=== PATIENT | female | born 1975 | race African-American/Black ===

== ENCOUNTER 2017-09-08 15:46 | Inpatient (IN) | payer BC ==
[2017-09-08] MEDS ORDERED: Acetaminophen 500 MG TAB ONE (16:38)
[2017-09-08 16:42] LABS: Hematocrit 21.6 % (36.0-47.0); Red Blood Cell (RBC) Count 3.53 mill/uL (4.20-5.40); White Blood Cell (WBC) Count 5.9 thou/uL (4.8-10.8)
[2017-09-08 16:54] LABS: Lactic Acid - Sepsis 2.5 mmol/L (0.5-2.2)
[2017-09-08 16:58] LABS: ALT (SGPT) 10 U/L (8-55); AST (SGOT) 26 U/L (5-34); Alkaline Phosphatase 44 U/L (40-150); Anion Gap 14 mmol/L (10-20); BUN (Urea Nitrogen) 8 mg/dL (7.0-18.7); Bilirubin, Total 0.5 mg/dL (0.2-1.2); CK (CPK) 151 U/L (29-168); Calc. Creatinine Clearance 0 mL/min (70-130); Calcium 9.9 mg/dL (7.8-10.44); Carbon Dioxide 20 mmol/L (22-29); Chloride 103 mmol/L (98-107); Estimated GFR-MDRD 82; Globulin 4.1 g/dL (2.4-3.5); Protein, Total 8.2 g/dL (6.0-8.3)
[2017-09-08 17:01] LABS: Troponin I Less than 0.010 ng/mL (< 0.028)
--- NOTE | 2017-09-08 17:02 | RAD ---
PORTABLE CHEST ONE VIEW 09/08/17 at 4:31 p.m. HISTORY: Dyspnea. FINDINGS: Comparison made to exam of 01/21/10. The heart size is normal. No confluent areas of consolidation, pneumothorax, james pulmonary edema or pleural effusions are seen. IMPRESSION: No acute process. POS: [facility]
[2017-09-08 17:05] LABS: Bilirubin Negative (Negative); Blood, Urine Trace (Negative); Glucose, Urine (Dipstick) Negative (Negative); Ketone, Urine Negative (Negative); Nitrite Negative (Negative); Protein, Urine (Dipstick) 30 mg/dL (Neg-Trace)
[2017-09-08 17:07] LABS: Bacteria/HPF 1+ HPF (None Seen); Hyaline Casts/LPF 0-3 HYALINE CAST LPF (0-3 Hyaline)
[2017-09-08 17:07] LABS: #Lymphocytes 0.8 thou/uL (1.20-3.40); #Monocytes 0.7 thou/uL (0.11-0.59); #Neutrophils 4.4 thou/uL (1.40-6.50); %Eosinophils 0.3 % (0.0-10.0); %Lymphocytes 14.3 % (21.0-51.0); %Monocytes 11.5 % (0.0-10.0); Anisocytosis SLIGHT = 6-15 cells (100X) (0-5/hpf); Hypochromia MODERATE=16-30 cells (100X) (0-5/hpf); Macrocytosis MODERATE=16-30 cells (100X) (0-5/hpf); Ovalocytes SLIGHT = 2-5 cells (100X) (0-1/hpf); Polychromasia SLIGHT = 2-3 cells (100X) (0-2/hpf)
[2017-09-08] MEDS ORDERED: Sodium Chloride 0.9% 1,000 ML IV SCH (22:15)
[2017-09-08 22:35] VITALS: BMI 42.0
[2017-09-09 00:41] LABS: Hematocrit 22.3 % (36.0-47.0)
[2017-09-09] MEDS ORDERED: Acetaminophen 325 MG TAB PO SCH (02:00)
[2017-09-09] MEDS ORDERED: Bisacodyl 5 MG TAB PO PRN (02:01)
[2017-09-09] MEDS ORDERED: Ondansetron HCl/PF 4 MG/2 ML Vial IVP PRN (02:01)
--- NOTE | 2017-09-09 03:09 | HP ---
PRIMARY CARE PROVIDER: None. CHIEF COMPLAINT: Shortness of breath. HISTORY OF PRESENT ILLNESS: Ms. Puga is a pleasant 41-year-old lady who was seen at [facility] on 09/09/2017. She reports that she has been having shortness of breath, fever, body aches, chills, cough, and conge stion for the last 3 days. It was worse yesterday. She also reports that she has a history of heavy menstrual bleeding. She was supposed to have an ablation 2 years ago, but did not go to her appoint ment. She denies any lightheadedness. She denies any chest pain. She denies any abdominal pain. She garett es any dizziness. She came to the emergency room because of ongoing shortness of breath. She also reports that she fel t warm. REVIEW OF SYSTEMS: The following complete review of systems was negative, unless otherwise mentioned in the HPI or below: Constitutional: Weight loss or gain, sense of well-being, ability to conduct usual activities, exerc ise tolerance. Skin/Breast: Rash, itching, changes in hair growth or loss, nail changes, breast lumps, tenderness, swelling, nipple discharge. Eyes: Vision, double vision, tearing, blind spots, pain. ENT/Mouth: Headaches (location, time of onset, duration, precipitating factors), vertigo, lightheade dness, injury. Vision, double vision, tearing, blind spots, pain, nose bleeding, colds, obstruction, discharge, dental difficulties, gingival bleeding, dentures, neck stiffness, pain, tenderness, masses in thyroid or other areas. Cardiovascular: Precordial pain, substernal distress, palpitations, syncope, dyspnea on exertion, or thopnea, nocturnal paroxysmal dyspnea, edema, cyanosis, hypertension, heart murmurs, varicosities, ph lebitis, claudication. Respiratory: Pain, shortness of breath, wheezing, stridor, cough, hemoptysis, fever or night sweats. Gastrointestinal: Poor appetite, dysphagia, indigestion, abdominal pain, heartburn, eructation, naus ea, vomiting, hematemesis, jaundice, constipation, or diarrhea, abnormal stools (keeley-colored, tarry, bloody, greasy, foul smelling), flatulence, hemorrhoids, recent changes in bowel habits. Genitourinary: Urgency, frequency, dysuria, nocturia, hematuria, polyuria, oliguria, unusual (or acosta nge in) color of urine, stones, hesitancy, change in size of stream, dribbling, acute retention or in continence, libido, potency. Musculoskeletal: Pain, swelling, redness or heat of muscles or joints, limitation, of motion, muscul ar weakness, atrophy, cramps. Neurologic/Psychiatric: Convulsions, paralyses, tremor, incoordination, paresthesias, difficulties w ith memory of speech, sensory or motor disturbances, or muscular coordination (ataxia, tremor), emoti onal problems, anxiety, depression, previous psychiatric care, unusual perceptions, hallucinations. Allergy/Immunologic: Skin rash, anemia, bleeding tendency, polydipsia, polyuria, intolerance to heat or cold. PAST MEDICAL HISTORY: Menorrhagia. PAST SURGICAL HISTORY: section. SOCIAL HISTORY: The patient denies tobacco use, alcohol use, or recreational drug use. FAMILY HISTORY: No family history of premature coronary artery disease. ALLERGIES: No known drug allergies. CURRENT MEDICATIONS: None. PHYSICAL EXAMINATION: GENERAL: On examination, Ms. Puga is awake and alert, not in acute distress. She is morbidly obe se with a BMI of 42.1 kilogram per square meter. VITAL SIGNS: Blood pressure is 110/49, pulse is 96, she was breathing at rate of 20 and saturating w ell on room air. She has a temperature of 100.2 degrees Fahrenheit. EYES: No scleral icterus, conjunctival pallor present. ENT: Dry mucosal membranes, no oropharyngeal erythema or exudates. NECK: Supple, nontender, normal range of movement, trachea is midline. RESPIRATORY: Accessory muscles of breathing are not active. Chest wall movements are symmetric bila terally. She has occasional expiratory wheeze. CARDIOVASCULAR: S1 and S2 are heard, regular. Peripheral pulses palpable. No carotid bruit, no per icardial rub. ABDOMEN: Soft, nontender, bowel sounds heard, no hepatomegaly, no splenomegaly. NEUROLOGIC: Cranial nerves II-XII are intact, deep tendon reflexes 2+. MUSCULOSKELETAL: Power is 5/5 in all 4 extremities. Normal range of movement at all major extremity joints. SKIN: No rashes or subcutaneous nodules. LYMPHATIC: No cervical lymphadenopathy. PSYCHIATRIC: Normal mood, normal affect, patient is oriented to person, place, and time. LABORATORY DATA: Ms. Puga' labs and investigations were reviewed. I reviewed her electrocardiogr am, which shows sinus tachycardia, no ST changes to suggest an acute coronary syndrome. I also revie wed her chest x-ray, which does not show any pulmonary infiltrates. She had influenza screen, which is positive for influenza A antigen. She also had Streptococcus screen, which was negative. Laborat ory investigation showed normal white count, hemoglobin of 5.8, low MCV of 61.3, normal platelet coun t, decreased sodium of 133, normal potassium, normal creatinine, unremarkable liver profile and iliana l troponin I. Lactic acid is currently 0.7, down from 2.5. Urinalysis is positive for protein, bloo d, small amount of leukocyte esterase. ASSESSMENT AND PLAN: Ms. Puga is a pleasant 41-year-old lady who was seen at [facility]. Her problem list includes: 1. Sepsis: Most likely secondary to influenza infection. 2. Influenza infection. She will be admitted to the hospital and treated with Tamiflu as well as in travenous fluids. 3. Symptomatic anemia: Likely due to menorrhagia. The patient is receiving packed RBC transfusions . We will recheck hemoglobin. She will need to follow up with [facility] as outpatient. 4. Hyponatremia: Mild, we will recheck. 5. Dehydration: The patient is currently dehydrated. We will provide intravenous hydration. Many thanks for allowing me to participate in your patient's care. Please feel free to contact me wi th any questions or concerns. LEVEL OF RISK: High. LEVEL OF COMPLEXITY: High.
[2017-09-09] MEDS: Sodium Chloride 0.9% 1,000 ML IV SCH ×2 (04:41→16:35)
[2017-09-09 06:27] LABS: Hematocrit 24.4 % (36.0-47.0); Mean Platelet Volume 5.8 fL (7.4-10.4); Red Blood Cell (RBC) Count 3.72 mill/uL (4.20-5.40); White Blood Cell (WBC) Count 4.7 thou/uL (4.8-10.8)
[2017-09-09 06:35] LABS: Anion Gap 10 mmol/L (10-20); BUN (Urea Nitrogen) 8 mg/dL (7.0-18.7); Calc. Creatinine Clearance 173 mL/min (70-130); Calcium 8.6 mg/dL (7.8-10.44); Carbon Dioxide 21 mmol/L (22-29); Chloride 106 mmol/L (98-107); Estimated GFR-MDRD Greater than 90
[2017-09-09 07:38] LABS: #Lymphocytes 0.8 thou/uL (1.20-3.40); #Monocytes 0.7 thou/uL (0.11-0.59); #Neutrophils 3.2 thou/uL (1.40-6.50); %Basophils 0.6 % (0.0-1.0); %Eosinophils 0.1 % (0.0-10.0); %Lymphocytes 16.7 % (21.0-51.0); %Monocytes 14.2 % (0.0-10.0); Hypochromia MODERATE=16-30 cells (100X) (0-5/hpf); Microcytosis MARKED = >30 cells (100X) (0-5/hpf); Polychromasia SLIGHT = 2-3 cells (100X) (0-2/hpf)
[2017-09-09] MEDS: Oseltamivir 75 MG CAP PO SCH ×2 (08:44→21:15)
[2017-09-09] MEDS: Acetaminophen 325 MG TAB PO PRN (11:04)
[2017-09-09] MEDS ORDERED: Potassium Chloride 20 MEQ TAB PO SCH (12:00)
--- NOTE | 2017-09-09 13:53 | PDOC.EVN ---
Event Note - Event Note Event Note: pt seen and eval agree with current plan monitor labs
[2017-09-09] MEDS ORDERED: HYDROcodone/Acetaminophen 5/325 mg Tablet PO PRN (14:00)
[2017-09-09] MEDS: Azithromycin 250 MG TAB PO SCH (14:48)
[2017-09-10] MEDS ORDERED: Benzonatate 100 MG CAP PO PRN (04:24)
[2017-09-10 04:55] LABS: Anion Gap 12 mmol/L (10-20); BUN (Urea Nitrogen) 7 mg/dL (7.0-18.7); Calc. Creatinine Clearance 188 mL/min (70-130); Calcium 8.3 mg/dL (7.8-10.44); Carbon Dioxide 21 mmol/L (22-29); Chloride 106 mmol/L (98-107); Estimated GFR-MDRD Greater than 90
[2017-09-10] MEDS: Acetaminophen 325 MG TAB PO PRN (05:22)
[2017-09-10 06:03] LABS: #Lymphocytes 1.4 thou/uL (1.20-3.40); #Monocytes 0.5 thou/uL (0.11-0.59); %Basophils 0.2 % (0.0-1.0); %Eosinophils 0.3 % (0.0-10.0); %Lymphocytes 28.1 % (21.0-51.0); %Monocytes 9.5 % (0.0-10.0); Hematocrit 27.7 % (36.0-47.0); Hypochromia MODERATE=16-30 cells (100X) (0-5/hpf); Mean Platelet Volume 5.8 fL (7.4-10.4); Microcytosis SLIGHT = 6-15 cells (100X) (0-5/hpf); White Blood Cell (WBC) Count 4.9 thou/uL (4.8-10.8)
[2017-09-10] MEDS: Loratadine 10 MG TAB PO SCH (09:24)
[2017-09-10] MEDS: Oseltamivir 75 MG CAP PO SCH ×2 (09:24→20:49)
[2017-09-10] MEDS: Sodium Chloride 0.9% 1,000 ML IV SCH (09:29)
[2017-09-10] MEDS ORDERED: cefTRIAXone\\ROCEPHIN 1 GM in Sodium Chloride 0.9% 100 ML IVPB SCH (11:45)
[2017-09-10] MEDS ORDERED: cefTRIAXone\\ROCEPHIN 1 GM, Syringe 0.4 ML in Sterile Water 9.6 ML SLOW IVP SCH (12:00)
[2017-09-10 12:26] LABS: Anion Gap 11 mmol/L (10-20); BUN (Urea Nitrogen) 6 mg/dL (7.0-18.7); Calc. Creatinine Clearance 183 mL/min (70-130); Calcium 8.5 mg/dL (7.8-10.44); Carbon Dioxide 24 mmol/L (22-29); Chloride 105 mmol/L (98-107); Estimated GFR-MDRD Greater than 90
--- NOTE | 2017-09-10 12:51 | PDOC.PN ---
- Subjective Encounter Start Date: 09/10/17 Encounter Start Time: 12:49 Patient seen and examined. No new complaints. No overnight events - Objective MAR Reviewed: Yes Vital Signs & Weight: Vital Signs (12 hours) Temp Pulse Resp BP Pulse Ox 09/10/17 12:00 99.0 F 69 20 121/76 74 L 09/10/17 09:20 98.8 F 80 20 09/10/17 08:00 98.8 F 80 20 112/59 L 95 09/10/17 04:30 100.0 F H 83 14 102/56 L 93 L 09/10/17 01:54 96 I&O: 09/09/17 09/10/17 09/11/17 06:59 06:59 06:59 Intake Total 188 945 0244 Balance 545 532 5152 Result Diagrams: 09/10/17 03:51 09/10/17 11:51 Phys Exam - Physical Examination Constitutional: NAD HEENT: PERRLA Neck: no JVD Respiratory: no rales Cardiovascular: no significant murmur Gastrointestinal: non-tender Musculoskeletal: pulses present Neurological: moves all 4 limbs Psychiatric: A&O x 3 Dx/Plan (1) Influenza A Code(s): J10.1 - FLU DUE TO OTH IDENT INFLUENZA VIRUS W OTH RESP MANIFEST Status: Acute (2) UTI (urinary tract infection) Status: Acute (3) SIRS (systemic inflammatory response syndrome) Code(s): R65.10 - SIRS OF NON-INFECTIOUS ORIGIN W/O ACUTE ORGAN DYSFUNCTION Status: Acute (4) Dehydration Code(s): E86.0 - DEHYDRATION Status: Acute (5) Symptomatic anemia Code(s): D64.9 - ANEMIA, UNSPECIFIED Status: Acute - Plan * repeat ur cul * cont tamiflu * cont abx * hydrate
[2017-09-10] MEDS: Azithromycin 250 MG TAB PO SCH (13:21)
[2017-09-10] MEDS ORDERED: Azithromycin 200 MG/5 ML Oral Suspension PO SCH (14:00)
[2017-09-11 05:46] LABS: Anion Gap 9 mmol/L (10-20); BUN (Urea Nitrogen) 5 mg/dL (7.0-18.7); Calc. Creatinine Clearance 190 mL/min (70-130); Calcium 8.6 mg/dL (7.8-10.44); Carbon Dioxide 22 mmol/L (22-29); Chloride 106 mmol/L (98-107); Estimated GFR-MDRD Greater than 90
[2017-09-11 06:20] LABS: #Lymphocytes 1.4 thou/uL (1.20-3.40); #Monocytes 0.4 thou/uL (0.11-0.59); %Basophils 0.2 % (0.0-1.0); %Eosinophils 0.2 % (0.0-10.0); %Lymphocytes 23.3 % (21.0-51.0); %Monocytes 7.1 % (0.0-10.0); Hematocrit 28.4 % (36.0-47.0); Mean Platelet Volume 5.5 fL (7.4-10.4); Red Blood Cell (RBC) Count 4.18 mill/uL (4.20-5.40); White Blood Cell (WBC) Count 5.8 thou/uL (4.8-10.8)
[2017-09-11 06:21] LABS: Hypochromia SLIGHT = 6-15 cells (100X) (0-5/hpf); Microcytosis SLIGHT = 6-15 cells (100X) (0-5/hpf)
[2017-09-11] MEDS: Loratadine 10 MG TAB PO SCH (08:40)
[2017-09-11] MEDS: Oseltamivir 75 MG CAP PO SCH (08:40)
[2017-09-11] MEDS ORDERED: Potassium Chloride 20 MEQ TAB PO SCH (10:30)
[2017-09-11] MEDS: Sodium Chloride 0.9% 1,000 ML IV SCH (10:42)
--- NOTE | 2017-09-11 11:23 | PDOC.PN ---
- Subjective Encounter Start Date: 09/11/17 Encounter Start Time: 11:22 Patient seen and examined. No new complaints. No overnight events - Objective MAR Reviewed: Yes Vital Signs & Weight: Vital Signs (12 hours) Temp Pulse Resp BP Pulse Ox 09/11/17 09:24 99.0 F 76 16 100 09/11/17 08:36 99.0 F 76 16 119/63 100 Weight Weight 254 lb 11.2 oz I&O: 09/10/17 09/11/17 09/12/17 06:59 06:59 06:59 Intake Total 450 3670 Balance 450 3670 Result Diagrams: 09/11/17 04:37 09/11/17 04:37 Phys Exam - Physical Examination Constitutional: NAD HEENT: PERRLA Neck: no JVD Respiratory: no wheezing Cardiovascular: no significant murmur Gastrointestinal: non-tender Musculoskeletal: pulses present Neurological: moves all 4 limbs Psychiatric: A&O x 3 Dx/Plan (1) Influenza A Code(s): J10.1 - FLU DUE TO OTH IDENT INFLUENZA VIRUS W OTH RESP MANIFEST Status: Acute (2) UTI (urinary tract infection) Status: Resolved (3) SIRS (systemic inflammatory response syndrome) Code(s): R65.10 - SIRS OF NON-INFECTIOUS ORIGIN W/O ACUTE ORGAN DYSFUNCTION Status: Acute (4) Dehydration Code(s): E86.0 - DEHYDRATION Status: Acute (5) Symptomatic anemia Code(s): D64.9 - ANEMIA, UNSPECIFIED Status: Acute - Plan * d/c home * f/u with pcp and obgyn
[2017-09-11 11:38] VITALS: BP 137/69; TEMP 98.4
--- NOTE | 2017-09-11 22:09 | DIS ---
DATE OF ADMISSION: 09/08/2017 DATE OF DISCHARGE: 09/11/2017 DISCHARGE DIAGNOSES: 1. Influenza type A. 2. Acute bronchitis. 3. Dehydration secondary to influenza. 4. Menorrhagia giving rise to symptomatic anemia. 5. Acute bronchitis. DISCHARGE MEDICATIONS: Include Levaquin 750 p.o. daily for 4 days, Tamiflu 75 p.o. b.i.d. for 3 more days, and Tessalon Perles 100 mg p.o. q.6 hours p.r.n. for cough. BRIEF HOSPITAL COURSE: This is a 41-year-old pleasant lady came into the hospital with shortness of breath. She was diagnosed to have influenza A. She was put on Tamiflu and she had some bronchitis, so she was put on Levaquin. Blood cultures and urine cultures were negative. The patient had sympto matic anemia when she came in because of menorrhagia. She was transfused 2 units of blood and hemogl obin stabilized. Right now, the shortness of breath has resolved. She is doing much better. She is medically stable to be discharged with outpatient follow up with PCP and the METER SETTER. She is asked t o come back to the emergency room in case symptoms recur. Total time for this discharge took 35 minutes.
== END 2017-09-11 12:15 | disposition home or self-care (01) | DRG 872 ==
LOC: ERS 15:46 → 2SE 21:54
PROVIDERS: ADMIT Internal Medicine Infectious Disease; ATTEND Internal Medicine Infectious Disease
PROC: 30233N1 Transfusion of Nonautologous Red Blood Cells into Peripheral Vein, Percutaneous Approach (ICD-10-PCS; principal; 2017-09-08)
DX: A41.89 Other specified sepsis (principal); E87.1 Hypo-osmolality and hyponatremia; N39.0 Urinary tract infection, site not specified; Z68.41 Body mass index [BMI] 40.0-44.9, adult; D64.9 Anemia, unspecified; J10.1 Influenza due to other identified influenza virus with other respiratory manifestations; N92.0 Excessive and frequent menstruation with regular cycle; E86.0 Dehydration; J20.8 Acute bronchitis due to other specified organisms; Z87.01 Personal history of pneumonia (recurrent); E66.01 Morbid (severe) obesity due to excess calories
CPT/HCPCS: 36415; 36430; 71010; 80048; 80053; 81003; 81015; 82274; 82553; 83605; 84484; 84703; 85014; 85018; 85025; 85060; 86850; 86900; 86901; 86921; 87040; 87081; 87086; 87149; 87430; 93005; 94640; 96360; 96361; A4216; J0696; J7620; P9016

== ENCOUNTER 2020-07-28 14:23 | Emergency (ER) | payer BC ==
[2020-07-28] MEDS ORDERED: Dexamethasone 10 MG/ML VIAL ONE (15:41)
[2020-07-28] MEDS ORDERED: Ibuprofen 800 MG TAB ONE (15:41)
--- NOTE | 2020-07-28 15:44 | RAD ---
Exam: Chest one view HISTORY:Chills and fevers. Body ache. Comparison: 09/08/2017 FINDINGS: Cardiac silhouette: Normal Aorta: Unremarkable Pulmonary vessels: Normal Costophrenic angles: Clear LUNGS: No masses or consolidation. Pneumothorax: None Osseous abnormalities: None IMPRESSION: No acute cardiopulmonary process.
[2020-07-29 15:40] LABS: SARS-CoV-2 MS2 Positive; SARS-CoV-2 N Gene Negative; SARS-CoV-2 S Gene Negative; SARS-CoV-2 by NAA Not Detected (NotDetected); SARS-CoV-2 orf1ab Negative
== END 2020-07-28 17:14 | disposition home or self-care (01) ==
LOC: ERS 14:23
DX: J02.9 Acute pharyngitis, unspecified (principal); Z20.828 Contact with and (suspected) exposure to other viral communicable diseases
CPT/HCPCS: 71045; 87081; 87430; 87635; 87804; 99283; J1100; U0003

== ENCOUNTER 2020-09-05 17:14 | Outpatient (CLI) | payer BC ==
[2020-09-06 02:10] LABS: SARS-CoV-2 MS2 Positive; SARS-CoV-2 N Gene Negative; SARS-CoV-2 S Gene Negative; SARS-CoV-2 by NAA Not Detected (NotDetected); SARS-CoV-2 orf1ab Negative
== END 2020-09-05 17:15 | disposition home or self-care (01) ==
LOC: LABBT 17:14
PROVIDERS: ATTEND Obstetrics & Gynecology
DX: Z20.828 Contact with and (suspected) exposure to other viral communicable diseases (principal)
CPT/HCPCS: 87635; U0003

== ENCOUNTER 2020-09-10 09:24 | Inpatient (IN) | payer BC ==
--- NOTE | 2020-09-10 08:54 | HP ---
REASON FOR ADMISSION: Total laparoscopic hysterectomy, bilateral salpingectomy secondary to menorrhagia and fibroids. HISTORY OF PRESENT ILLNESS: Ms. Puga is a 44-year-old 6, para 6, AB 0, x1, x5, who presented to me several months ago after a 5-year absence from my practice. We had discussed back in 2015 as well as recently her menorrhagia and severe dysmenorrhea and she desires definitive surgical management. 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 Negative Pap. Negative mammo. The patient has a history of overactive bladder. PAST SURGICAL HISTORY: . ALLERGIES: DENIES. MEDICATIONS: VESIcare. SOCIAL HISTORY: Denies tobacco, alcohol, or IV drug abuse. FAMILY HISTORY: Noncontributory. REVIEW OF SYSTEMS: Noncontributory. PHYSICAL EXAMINATION: VITAL SIGNS: 5 feet and 5 inches, 272, BMI 45. Blood pressure 126/70, pulse 85, and respirations 18. HEENT: Within normal limits. LUNGS: Clear to auscultation bilaterally. HEART: Regular rate and rhythm. BREASTS: No masses bilaterally. ABDOMEN: Soft, nontender. No rebound or guarding. PELVIS: Vulva without lesions. Vagina without discharge. Cervix, parous. Uterus anteverted, boggy, approximately 8 to 10 week size and tender. No adnexal masses noted. EXTREMITIES: No clubbing, cyanosis, or edema. DIAGNOSTIC STUDIES: Ultrasound was performed in the office revealed a uterus that measured 11 x 6 x 6 cm, 230 mL volume, 12 mm endometrial thickness. Normal-appearing right and left ovary with a simple right ovarian cyst. No free fluid. Of note, the uterus was consistent with adenomyosis. IMPRESSION: Menorrhagia. Globally enlarged uterus consistent with adenomyosis and dysmenorrhea, desires definitive surgical management. PROCEDURE: Total laparoscopic hysterectomy, bilateral salpingectomy with da Chelita robot. The patient understands risks and benefits of procedure. We will administer appropriate antibiotic and DVT prophylaxis. Job ID: [id number]
[2020-09-10] MEDS ORDERED: CeleCOXIB 100 MG CAP ONE (09:41)
[2020-09-10] MEDS ORDERED: Gabapentin 300 MG CAP ONE (09:41)
[2020-09-10] MEDS ORDERED: Famotidine/PF 20 mg/2ml Vial ONE (09:42)
[2020-09-10 10:04] LABS: #Basophils 0.1 thou/uL (0.0-0.2); #Eosinphils 0.1 thou/uL (0.0-0.7); #Lymphocytes 1.6 thou/uL (1.20-3.40); #Monocytes 0.4 thou/uL (0.11-0.59); #Neutrophils 4.2 thou/uL (1.40-6.50); %Basophils 0.8 % (0.0-1.0); %Eosinophils 1.9 % (0.0-10.0); %Lymphocytes 25.3 % (21.0-51.0); %Monocytes 6.7 % (0.0-10.0); %Neutrophils 65.4 % (42.0-75.0); Hemoglobin 6.9 g/dL (12.0-16.0); Mean Corpuscular HGB CONC 27.7 g/dL (32.0-36.0); Mean Corpuscular Hemoglobin 17.1 pg (27.0-31.0); Mean Corpuscular Volume 61.8 fL (78.0-98.0); Mean Platelet Volume 6.6 fL (7.4-10.4); Platelet Count 354 thou/uL (130-400); Red Blood Cell (RBC) Count 4.04 mill/uL (4.20-5.40); White Blood Cell (WBC) Count 6.5 thou/uL (4.8-10.8)
[2020-09-10 10:13] LABS: BHCG - Serum Negative (NEGATIVE); Pregs Control Background? CLEAR/WHITE (CLR/WHITE); Pregs Control Bar Appear? YES (CONTROL BAR)
[2020-09-10] MEDS ORDERED: Lidocaine 1% w/Epinephrine 1:100K 20 ML VIAL ONE (10:27)
[2020-09-10] MEDS ORDERED: Methylene Blue 50 MG/10 ML AMPUL ONE (10:27)
[2020-09-10] MEDS ORDERED: Bupivacaine PF 0.5% 30 ML VIAL ONE (10:27)
[2020-09-10] MEDS ORDERED: Fentanyl 100 MCG/2 ML VIAL ONE ×2 (10:41→14:41)
[2020-09-10] MEDS ORDERED: SUGAMMADEX SODIUM 200 MG/2 ML VIAL ONE (10:42)
[2020-09-10 10:58] LABS: Hypochromia MODERATE=16-30 cells (100X) (0-5/hpf); MDiff Complete? YES; Microcytosis MARKED = >30 cells (100X) (0-5/hpf); Ovalocytes MODERATE= 6-15 cells (100X) (0-1/hpf); Platelet Morphology Comment Appears Adequate; Polychromasia SLIGHT = 2-3 cells (100X) (0-2/hpf); Reflex for Review?? NO; Tear Drops SLIGHT = 2-5 cells (100X) (0-1/hpf)
[2020-09-10] MEDS ORDERED: Midazolam HCl 2 mg/2 ml Vial ONE (11:02)
[2020-09-10] MEDS ORDERED: Promethazine HCl 25 MG/ML VIAL IM PRN ×2 (13:32→15:38)
[2020-09-10] MEDS ORDERED: Promethazine HCl 25 MG/ML VIAL SLOW IVP PRN (13:32)
[2020-09-10] MEDS ORDERED: Meperidine HCl/PF 25 MG/ML VIAL SLOW IVP PRN (13:32)
[2020-09-10] MEDS ORDERED: PACU-Morphine 4MG/ML VIAL SLOW IVP PRN (13:32)
--- NOTE | 2020-09-10 14:39 | OP ---
DATE OF PROCEDURE: 09/10/2020 PREOPERATIVE DIAGNOSES: Adenomyosis, menorrhagia, severe iron deficiency anemia secondary. POSTOPERATIVE DIAGNOSES: Adenomyosis, menorrhagia, severe iron deficiency anemia secondary, dense cervical adhesions to the lower uterine segment and cervix. PROCEDURES: Total laparoscopic hysterectomy, bilateral salpingo-oophorectomy, incidental cystotomy and hysterectomy with repair with da Chelita. SPECIMENS REMOVED: Uterus and bilateral tubes. ESTIMATED BLOOD LOSS: 150 cc. OPERATIVE FINDINGS: 1. Enlarged uterus consistent with adenomyosis. 2. Right hydrosalpinx. 3. Dense adhesions of the cervix folded back over the bladder at the level of the cervix and lower uterine segment. 4. Incidental cystotomy recognized at the time of cystotomy repaired in 2-layer closure technique. 5. Clear urine. COUNTS: Correct at the end of the procedure. DISPOSITION: To recovery room in good condition. DESCRIPTION OF PROCEDURE: After obtaining appropriate informed consent, the patient was taken to the operating room, where general endotracheal anesthesia was achieved without difficulty. She was prepped and draped in dorsal lithotomy position in Lincoln stirrups. Sliding speculum was placed in vagina. Cervix was identified and grasped with single-toothed tenaculum, sounded to 8 to 9 cm and a KARIN manipulator, 4 cm vaginal warehouse order puller, 8 cm obturator was placed without difficulty. Chaparro catheter was placed and attached to a 60 cc syringe. Bladder drained. Attention was turned to the abdominal portion of the procedure. A 5 cc of Marcaine injected 2 cm above the umbilicus and a Veress needle placed in the abdominal cavity. Insufflation was carried out with carbon dioxide max pressure of 15. A 12 mm non-cutting trocar was placed at this level and confirmation entry into the peritoneal cavity without trauma to the underlying viscera was noted. No significant adhesions were noted of the omentum to the anterior abdominal wall. The patient had a previous vertical midline incision for delivery. The patient was placed in steep Trendelenburg and right and left lateral da Chelita ports were placed lateral to the epigastric vessels as well as an entry level marketing assistant port in the right upper quadrant. Da Chelita was docked with monopolar scissors in the right hand and bipolar fenestrated forceps in the left. Findings as noted in the operative findings were noted. The mesosalpinx on the patient's left was coagulated, transected, and the fallopian tube removed. The utero-ovarian and the broad and the round were then coagulated and transected on that side. This was carried down to the level of the internal cervical os. Large bulky aspect of the patient's uterus as well as her obesity and scar tissue at the level of the bladder from her previous made visualization somewhat difficult, but this was taken down in the usual manner. The bladder was backfilled several times and was appreciated and identified. However, in taking the bladder down off the cervix and lower uterine segment, it was noted that was apparently double folded on at this level and after it was taken down at one layer and pushing down an incidental cystotomy was noted with a Chaparro catheter in the midline was approximately 2 cm in width. Utilizing the cystotomy, the layer of the bladder was identified and continued sharp dissection was carried down at the level where it could be dissected off the cervix and upper vagina. Skeletonization was carried out with the uterine vessels on the patient's left and these were coagulated and transected. On the patient's right, the identical procedure was carried out. Hydrosalpinx was noted on that side and the tube drained, excised and removed and then coagulated through the utero-ovarian, the broad, the round, and down the level of the internal cervical os. The uterus was very bulky on this side. The broad ligament was very wide, however, was maintained medially staying medial to the ureter and vessels. These were coagulated and taken down to the level of the upper vagina as well anteriorly. Again, the bladder had been well identified and incision was made in the vagina at the level of the KARIN manipulator at 12 o'clock and this was carried from 12 to 3 and 12 to 9, then from 6 to 3 and 6 to 9 amputating the specimen. The specimen was pulled into the vagina and it was quite tight fit, however, no laceration to the vagina was noted. Suction irrigation was carried out and good hemostasis was noted along the vaginal cuff. Again, the vaginal cuff was well identified as well as the cystotomy that was midline in the bladder, was approximately 2 to 3 cm up from the level of the bladder interface with the vagina. The vagina was closed using a running continuous 2-0 PDS Stratafix in the usual manner from right to left and then back to right. Suction irrigation was carried out and good hemostasis was noted. The cystotomy was inspected, noted to have very well demarcated edges and the muscularis and the mucosa were both identified and it was felt to be high enough in midline enough that worry about a ureteral injury was not significant. The bladder mucosa was closed using a running continuous 3-0 Vicryl suture from right to left. General backfilling was carried out, which revealed the closure line to be watertight at low pressure. A 3-0 chromic was then introduced and the muscularis and serosa were then brought over the level of the injury using horizontal mattresses interrupted. After this was carried out, good hemostasis was noted and watertightness was noted. Chaparro catheter was removed and noted to not be sutured in. The surgical bed as well as level of bladder injury were sprayed with Tisseel at the end of the procedure. The estimated blood loss was 150 cc. The da Chelita instruments removed. The da Chelita undocked. The abdomen desufflated of carbon dioxide. Trocar above the umbilicus was removed. Fascia identified and closed using a hiuiti-et-vadpx of 0 Vicryl on a UR5 needle. Skin reapproximated x4 using 4-0 Monocryl and Dermabond. The vagina was inspected and noted to be intact and dry. Clear urine noted and the patient awakened, extubated and taken to recovery room in good condition. Because of the patient's starting hematocrit of 25% with a hemoglobin of 6.9, a decision was made to go ahead and transfuse 1 unit of PRBCs. Also secondary to the patient's obesity on prolonged nature of the procedure, a decision was made to give a second dose of Ancef at 1500. The patient's Chaparro will be left in situ. She will be discharged home with 10 days at least to Chaparro drainage with a cystogram performed after that. Job ID: [id number]
[2020-09-10] MEDS ORDERED: HYDROcodone/Acetaminophen 10/325 mg Tablet PO PRN ×2 (15:38)
[2020-09-10] MEDS ORDERED: Ondansetron PF 4 MG/2 ML Vial IVP PRN (15:38)
[2020-09-10] MEDS ORDERED: Morphine 4 MG/ML VIAL SLOW IVP PRN (15:38)
[2020-09-10] MEDS ORDERED: Simethicone Chewable 80 MG TAB PO PRN (15:38)
[2020-09-10] MEDS ORDERED: diphenhydrAMINE 25 MG CAP PO PRN (15:38)
[2020-09-10] MEDS ORDERED: Morphine 2 MG/ML VIAL SLOW IVP PRN (15:38)
[2020-09-10 15:59] VITALS: BMI 44.9
[2020-09-10] MEDS: Sodium Chloride 0.9% 1,000 ML IV SCH (19:08)
[2020-09-10] MEDS ORDERED: CEFAZOLIN 2 GM in Premix Bag 1 BAG IVPB SCH (20:00)
[2020-09-10] MEDS: Ibuprofen 800 MG TAB PO SCH (21:13)
[2020-09-10] MEDS: Gabapentin 300 MG CAP PO SCH (21:13)
[2020-09-11] MEDS: Sodium Chloride 0.9% 1,000 ML IV SCH ×2 (01:01→09:15)
[2020-09-11] MEDS: Ibuprofen 800 MG TAB PO SCH (06:15)
[2020-09-11 06:52] LABS: Hemoglobin 7.8 g/dL (12.0-16.0); Mean Corpuscular HGB CONC 29.2 g/dL (32.0-36.0); Mean Corpuscular Hemoglobin 19.9 pg (27.0-31.0); Mean Corpuscular Volume 68.2 fL (78.0-98.0); Platelet Count 330 thou/uL (130-400); White Blood Cell (WBC) Count 10.1 thou/uL (4.8-10.8)
[2020-09-11 07:56] VITALS: BP 97/53; TEMP 98.6
[2020-09-11] MEDS: Gabapentin 300 MG CAP PO SCH (09:11)
--- NOTE | 2020-09-11 10:55 | DIS ---
DATE OF ADMISSION: 09/10/2020 DATE OF DISCHARGE: 09/11/2020 PRINCIPAL AND HOSPITAL PROCEDURE: Total laparoscopic hysterectomy with bilateral salpingectomy. SECONDARY AND HOSPITAL PROCEDURES: 1. Repair of incidental cystotomy at time of hysterectomy. 2. Blood transfusion of 1 unit of PRBCs. SUMMARY OF HOSPITAL COURSE: The patient was admitted for a long history of menorrhagia with severe anemia with her admitting hematocrit of 25%, hemoglobin of 6.9. She had a history of prior section x1. She had an enlarged uterus approximately 200 g. During her hysterectomy, an incidental cystotomy midline was encountered and repaired primarily with a 2-layer closure. EBL during the procedure was approximately 150 mL. Considering the patient's morbid obesity, long-standing anemia, and need for healing post hysterectomy and cystotomy, decision was made to transfuse 1 unit of PRBCs, which was carried out. On the patient's postoperative day #1, hematocrit was 26.6% with a hemoglobin of 7.8. On postoperative day #1, temperature is 98.7, T-max 98.7, pulse 75, respirations 20, blood pressure 115/56. The patient is taking p.o. intake well and has had over 1300 mL of urine output postoperatively. PHYSICAL EXAMINATION: LUNGS: Clear to auscultation bilaterally. HEART: Regular rate and rhythm. ABDOMEN: Soft, nontender, appropriately discomfort at the level of her incisions which are intact and dry. No CVA tenderness. Her perineum is dry. EXTREMITIES: No clubbing, cyanosis, or edema. GENITOURINARY: Chaparro catheter is draining well with yellow urine without any gross hematuria noted. IMPRESSION: 1. Status post total laparoscopic hysterectomy with bilateral salpingectomy. 2. Chronic iron-deficiency anemia secondary to menorrhagia, treated with 1 unit of PRBCs post-surgery. 3. Incidental cystotomy at the time of hysterectomy, repaired with primary 2-layer closure and bladder drainage. PLAN: 1. Discharge home. 2. Analgesics, [place], and ibuprofen as prescribed preoperatively. 3. Cipro 250 p.o. at bedtime as long as continuous drainage is carried out, which will be approximately 10 to 14 days. We will schedule the patient to have a cystogram performed on September 22, to evaluate bladder integrity and discontinue Chaparro at that time if intact bladder is noted. 4. The patient has ER instructions and is instructed the importance of functioning continuous drainage of her bladder using leg bag and regular bag at night. Job ID: [id number]
== END 2020-09-11 11:09 | disposition home or self-care (01) | DRG 742 ==
LOC: SDC 09:24 → 3SE 15:38
PROVIDERS: ADMIT Obstetrics & Gynecology; ATTEND Obstetrics & Gynecology
PROC: 0UT9FZZ Resection of Uterus, Via Natural or Artificial Opening With Percutaneous Endoscopic Assistance (ICD-10-PCS; principal; 2020-09-10)
PROC: 0UT2FZZ Resection of Bilateral Ovaries, Via Natural or Artificial Opening With Percutaneous Endoscopic Assistance (ICD-10-PCS; 2020-09-10)
PROC: 0UT7FZZ Resection of Bilateral Fallopian Tubes, Via Natural or Artificial Opening With Percutaneous Endoscopic Assistance (ICD-10-PCS; 2020-09-10)
PROC: 0WQF4ZZ Repair Abdominal Wall, Percutaneous Endoscopic Approach (ICD-10-PCS; 2020-09-10)
PROC: 8E0WXCZ Robotic Assisted Procedure of Trunk Region (ICD-10-PCS; 2020-09-10)
PROC: 0T9B40Z Drainage of Bladder with Drainage Device, Percutaneous Endoscopic Approach (ICD-10-PCS; 2020-09-10)
PROC: 30233N1 Transfusion of Nonautologous Red Blood Cells into Peripheral Vein, Percutaneous Approach (ICD-10-PCS; 2020-09-10)
DX: N80.0 Endometriosis of uterus (principal); Z68.41 Body mass index [BMI] 40.0-44.9, adult; Z20.828 Contact with and (suspected) exposure to other viral communicable diseases; N92.0 Excessive and frequent menstruation with regular cycle; D50.9 Iron deficiency anemia, unspecified; N88.1 Old laceration of cervix uteri; E66.9 Obesity, unspecified; D25.9 Leiomyoma of uterus, unspecified
CPT/HCPCS: 36415; 36430; 84703; 85025; 85027; 86850; 86900; 86901; 86922; 88307; J0690; J2250; J3010; P9016; Q9968; S0020; S0028

== ENCOUNTER 2022-04-01 07:59 | Outpatient (CLI) | payer BC | END 2022-04-01 08:00 | disposition home or self-care (01) | LOC: BICMAMMO 07:59 | PROVIDERS: ATTEND Nurse Practitioner Family | DX: Z12.31 Encounter for screening mammogram for malignant neoplasm of breast (principal); Z80.3 Family history of malignant neoplasm of breast | CPT/HCPCS: 77063; 77067 ==

== ENCOUNTER 2023-06-26 10:56 | Emergency (ER) | payer BC ==
[2023-06-26] MEDS ORDERED: Dexamethasone 10 MG/ML VIAL ONE (12:10)
[2023-06-26] MEDS ORDERED: Ibuprofen 800 MG TAB ONE (12:10)
[2023-06-26 12:15] LABS: SARS-CoV-2 NAA Rapid Test Not Detected (NotDetected)
== END 2023-06-26 13:20 | disposition home or self-care (01) ==
LOC: ERS 10:56
DX: B34.9 Viral infection, unspecified (principal); Z20.822 Contact with and (suspected) exposure to COVID-19
CPT/HCPCS: 71045; 87081; 87430; 99283; J1100

== ENCOUNTER 2025-05-21 17:25 | Emergency (ER) | payer BC ==
[2025-05-21] MEDS ORDERED: Acetaminophen 500 MG TAB ONE (18:11)
[2025-05-21] MEDS ORDERED: Bicillin LA 1.2 MILLION UNITS/2 ML SYRINGE ONE (18:11)
[2025-05-21] MEDS ORDERED: Dexamethasone 4 MG TAB ONE (18:11)
[2025-05-21] MEDS ORDERED: Ketorolac Tromethamine 30 MG (1 mL) VIAL ONE (18:11)
== END 2025-05-21 18:38 | disposition home or self-care (01) ==
LOC: ERS 17:25
DX: J02.0 Streptococcal pharyngitis (principal)
CPT/HCPCS: 87430; 96372; 99283; J0561; J1885; J8540